=== PATIENT | male | born 1990 | race Caucasian/White ===

== ENCOUNTER 2019-12-04 13:35 | Emergency (ER) | payer MEDICAID ==
[~2019-12-04] VITALS: Ht 175.3 cm; Wt 81.3 kg
--- NOTE | 2019-12-04 16:24 | NUR ---
PT AMBULATORY TO ROOM 22 W/ C/O R LOWER AND R UPPER DENTAL PAIN. PT STATES HIS WISOM TEETH ARE GROWING IN CROOKED AND BLOCKING HIS TEETH AND CRACKED HIS UPPER TOOTH. PT RESTING ON [facility]. ABHAY. MONITORS APPLIED. VSS.
--- NOTE | 2019-12-04 16:51 | NUR ---
THIS FLOAT RN AT BEDSIDE TO DC PT FOR PRIMARY RN. PT VERBALIZED UNDERSTANDING TO DC INSTRUCTIONS. AMBULATORY TO CHECKOUT C STEADY GAIT.
[2019-12-04 16:52] VITALS: BP 113/79
== END 2019-12-04 16:55 | disposition home or self-care (01) ==
LOC: ED 16:25
DX: K08.89 Other specified disorders of teeth and supporting structures (principal)
CPT/HCPCS: 99283

== ENCOUNTER 2020-03-11 08:52 | Emergency (ER) | payer MEDICAID ==
[~2020-03-11] VITALS: Ht 180.3 cm; Wt 83.1 kg
[2020-03-11 09:03] VITALS: BP 121/71
[2020-03-11] MEDS ORDERED: ACETAMINOPHEN 500 MG TABLET ONE (09:23)
[2020-03-11] MEDS ORDERED: CYCLOBENZAPRINE 10 MG TABLET ONE (09:23)
[2020-03-11] MEDS ORDERED: CYCLOBENZAPRINE 10 MG TABLET PO ONE (09:30)
[2020-03-11] MEDS ORDERED: ACETAMINOPHEN 500 MG TABLET PO ONE (09:30)
--- NOTE | 2020-03-11 09:50 | NUR ---
ASSUMED CARE OF PT. REPORT RECEIVED FROM GEORGINA RAHMAN
--- NOTE | 2020-03-11 09:50 | NUR ---
PT COMES IN C/O ABD PAIN. STATES HE WAS LIFTING AN ENGINE AND THEN WENT GOLFING. STATES "I FEEL LIKE I STRAINED SOME MUSCLES CAUSE I HAVENT LIFTED IN A WHILE". PT RECENTLY MEDICATED BY PREVIOUS RN. PT STATES DECREASED IN PAIN TO 07/31. VSS. NAD. CALL LIGHT W/IN REACH. WILL CONTINUE TO MONITOR
== END 2020-03-11 10:14 | disposition home or self-care (01) ==
LOC: ED 10:08
DX: S39.011A Strain of muscle, fascia and tendon of abdomen, initial encounter (principal); Z88.6 Allergy status to analgesic agent; X58.XXXA Exposure to other specified factors, initial encounter; Y93.89 Activity, other specified; Y92.89 Other specified places as the place of occurrence of the external cause; Y99.8 Other external cause status
CPT/HCPCS: 99283

== ENCOUNTER 2020-03-14 13:08 | Emergency (ER) | payer MEDICAID ==
[~2020-03-14] VITALS: Ht 180.3 cm; Wt 79.9 kg
--- NOTE | 2020-03-14 13:50 | NUR ---
VENDING MACHINE TECHNICIAN: PT TO ROOM FROM LOBBY AT THIS TIME VIA WHEELCHAIR FOR COMFORT WITH MANAGER MACHINE
--- NOTE | 2020-03-14 14:07 | NUR ---
PATIENT WHEELED BACK FROM LOBBY WITH CHIEF C/O LEFT RIB PAIN. PER PATIENT HE WAS HERE RECENTLY FOR A HERNIA CHECK, BUT HAS BEEN HAVING LOTS OF PAIN ON THE LEFT SIDE OF HIS ABD AND THINKS HE MAY HAVE INJURED IT "WHILE PLAYING GOLF." PATIENT DENIES N/V, REPORTS DIARRHEA STARTED LAST NIGHT. PATIENT ALSO REPORTS FEELING "DIZZY" AND EXPERIENCING "HOT FLASHES." DENIES FEVER. LENKA BLANK, ACCOMPANIED BY FRIEND, CALL LIGHT WITHIN REACH.
[2020-03-14] MEDS ORDERED: METHOCARBAMOL 750 MG TABLET PO ONE (14:30)
[2020-03-14] MEDS ORDERED: KETOROLAC 30 MG/1 ML IM ONE (14:30)
[2020-03-14] MEDS ORDERED: METHOCARBAMOL 750 MG TABLET ONE (14:37)
[2020-03-14] MEDS ORDERED: KETOROLAC 30 MG/1 ML ONE (14:37)
--- NOTE | 2020-03-14 14:41 | NUR ---
PATIENT MEDICATED PER eMAR, PATIENT REFUSING ROBAXIN AT THIS TIME. LENKA BLANK. CLIENT HR MANAGER AT BEDSIDE.
[2020-03-14 16:29] VITALS: BP 132/75
--- NOTE | 2020-03-14 16:43 | NUR ---
Patient given discharge instructions and prescriptions and they have confirmed that they understand the instructions. Patient stable and wheeled from ED with friend to private vehicle.
== END 2020-03-14 16:44 | disposition home or self-care (01) ==
LOC: ED 15:05
DX: S39.011A Strain of muscle, fascia and tendon of abdomen, initial encounter (principal); X58.XXXA Exposure to other specified factors, initial encounter; Y93.89 Activity, other specified; Y92.89 Other specified places as the place of occurrence of the external cause; Y99.8 Other external cause status
CPT/HCPCS: 71045; 76705; 96372; 99284; J1885

== ENCOUNTER 2020-05-10 14:16 | Emergency (ER) | payer MEDICAID ==
[~2020-05-10] VITALS: Ht 177.8 cm; Wt 84.2 kg
[2020-05-10 14:20] VITALS: BP 132/68
== END 2020-05-10 15:24 | disposition home or self-care (01) ==
LOC: ED 15:05
DX: J02.9 Acute pharyngitis, unspecified (principal); Z20.822 Contact with and (suspected) exposure to COVID-19
CPT/HCPCS: 99283; U0003